=== PATIENT | male | born 1970 | race Two or more races ===

== ENCOUNTER 2023-09-08 10:24 | Emergency (ER) | payer OTHER ==
[~2023-09-08] VITALS: Ht 172.7 cm; Wt 75.3 kg
[2023-09-08 11:48] LABS: Basophils # (auto) 0 10 ^3/uL (0-0.2); Basophils % (auto) 0.3 % (0.0-2.0); Eosinophils # (auto) 0 10 ^3/uL (0-0.8); Hematocrit 44.6 % (41.0-53.0); Hemoglobin 14.5 g/dL (13.5-17.5); Lymphocytes # (auto) 0.9 10 ^3/uL (0.4-5.4); Lymphocytes % (auto) 24.8 % (10.0-50.0); Mean Corpuscular Hgb Conc. 32.6 g/dL (32.0-36.0); Mean Corpuscular Volume 88.9 fL (80.0-100.0); Monocytes # (auto) 0.4 10 ^3/uL (0-1.3); Monocytes % (auto) 12.6 % (0.0-12.0); Neutrophils # (auto) 2.1 10 ^3/uL (1.6-8.6); Neutrophils % (auto) 61.3 % (37.0-80.0); Nucleated Red Blood Cells % 0.7 %; Red Blood Cells 5.01 10^6/uL (4.5-5.90); Red Cell Distribution Width 14.1 % (11.8-14.3); White Blood Cell 3.4 10^3/uL (4.4-10.8)
[2023-09-08 12:08] LABS: Alanine Aminotransferase 21 U/L (7-40); Albumin 4.7 g/dL (3.2-4.8); Alkaline Phosphatase 52 U/L (46-116); Anion Gap 8 (5-15); Aspartate Aminotransferase 37 U/L (13-40); BUN/Creatinine Ratio 7.8 (10.0-20.0); Blood Urea Nitrogen 8 mg/dL (9-23); Calcium 9.3 mg/dL (8.7-10.4); Carbon Dioxide 26 mmol/L (20-30); Chloride 104 mmol/L (98-107); Glucose 123 mg/dL (74-106); Lipase 48 U/L (12-53); Potassium 3.8 mmol/L (3.5-5.1); Sodium 138 mmol/L (136-145)
[2023-09-08 12:09] LABS: Bilirubin, Total 1.6 mg/dL (0.2-1.0); Total Protein 7.8 g/dL (5.7-8.2)
[2023-09-08 13:23] VITALS: TEMP 98.1
[2023-09-08] MEDS: cloNIDine HCL 0.1 MG TAB PO ONE (13:32)
[2023-09-08 14:27] VITALS: BP 150/89; PULSE 60; RESP 17; O2SAT 98
[2023-09-08 14:39] LABS: Urine Bacteria NONE SEEN /hpf (None Seen); Urine Blood Negative /uL (Negative); Urine Clarity Clear (Clear); Urine Color Yellow (Yellow); Urine Protein, UAD Negative (Negative); Urine Specific Gravity 1.015 (1.001-1.035); Urine Urobilinogen Normal (Negative); Urine WBC <1 /hpf (0 - 3); Urine pH 5.5 (5.0-8.0)
== END 2023-09-08 14:27 | disposition home or self-care (01) ==
LOC: ER 10:24
DX: I10 Essential (primary) hypertension (principal); R10.13 Epigastric pain; R11.2 Nausea with vomiting, unspecified; K59.00 Constipation, unspecified; K21.9 Gastro-esophageal reflux disease without esophagitis
CPT/HCPCS: 36415; 80053; 81001; 83690; 85025

== ENCOUNTER 2024-09-07 00:19 | Inpatient (IN) | payer OTHER ==
[~2024-09-07] VITALS: Ht 172.7 cm; Wt 68.8 kg
--- NOTE | 2024-09-07 00:49 | ED.PDOC ---
GI ASSESSMENT HPI Comments 53-year-old male came to ER due to the abdominal pain. Patient states for the past 4 days, been having intermittent episodes of aching, cramping, epigastric abdominal pain, non radiating. Patient feels nauseated, and his last bowel movement was 3 days ago. Denies any history of abdominal surgeries. Patient denies any significant past medical history. He does follow up with the PA for routine medical care. Chief Complaint: Abdominal Pain Time Seen by MD: 00:47 Primary Care Provider: PA Reviewed Notes: Nurses Notes Allergies: Coded Allergies: NO KNOWN ALLERGIES (Unverified , 09/08/23) Information Source: Patient Mode of Arrival: Ambulatory Timing: Days Duration: Intermittent Prehospital treatment: None Quality: Aching, Cramping Vomitus: None Stool: Impaction Severity: Moderate Recent: None Recent Hx of: None Pain Location: Epigastric Associated sign and symptoms: Nausea, Constipation, Abdominal Pain Review of Systems REVIEW OF SYSTEMS: No fever, no chills, or fatigue HEENT: No sore throat, no earache, no congestion, no neck pain. Cardiac: No chest pain. No palpitations. Lungs: No shortness of breath, no cough. GI: No nausea, no vomiting, no diarrhea, (+) constipation, (+) abdominal pain : No dysuria, frequency, or urgency. No hematuria. Musculoskeletal: No joint pain , no joint swelling, no extremity edema. Skin: No rash, no itching. Neuro: No headache, no dizziness, no weakness Vital Signs Vital Signs Date Time Temp Pulse Resp B/P (MAP) Pulse Ox O2 Delivery O2 Flow Rate FiO2 09/07/24 04:40 52 24 178/98 09/07/24 04:26 100 09/07/24 01:27 Room Air* 0 21 09/07/24 01:10 98.2 98.2 Physical Exam General: Awake, alert and oriented. No acute distress. Skin: Skin in warm, dry and intact. Appropriate color for ethnicity. Nailbeds pink with no cyanosis. HEENT: The head is normocephalic and atraumatic. Conjunctivae are clear without exudates or hemorrhage. Sclera is non-icteric. EOM are intact. No signs of nystagmus. Eyelids are normal in appearance without swelling or lesions. Oral mucosa is pink and moist Neck: The neck is supple with normal range of motion. No JVD. Cardiac: Heart rate and rhythm are normal. No murmurs, gallops, or rubs are auscultated. Respiratory: No signs of respiratory distress. Lung sounds are clear in all lobes bilaterally without rales, ronchi, or wheezes. Abdominal: Abdomen is firm and distended. Generally tender with diminished bowel sounds. Extremities: Upper and lower extremities are atraumatic in appearance without deformity or edema. Neurological: The patient is awake, alert and oriented to person, place, and time with normal speech. Speech is clear. There is no facial asymmetry. Psychiatric: Appropriate mood and affect. Good judgement and insight. Past Medical History PAST MEDICAL HISTORY: GERD, HTN Surgical History: Denies all surgeries Family History Family History: Reviewed,noncontributory to illness Social History Smoker: Non-Smoker Alcohol: Occasionally Drugs: Denies Drug Use Lives In: Home Was a procedure done? Was a procedure done?: No GI differential Dx Differential Diagnosis: Bowel Obstruction, Constipation, Diverticular disease, Gastritis/PUD, Gastroenteritis, Hernia, Inflammatory BD, Ischemic Bowel, Pancreatitis, UTI, Urolithiasis, Other (Fecal impaction) X-Ray, Labs, Meds, VS Vital Signs Date Time Temp Pulse Resp B/P (MAP) Pulse Ox O2 Delivery O2 Flow Rate FiO2 09/07/24 04:40 52 24 178/98 09/07/24 04:26 52 20 178/98 (124) 100 09/07/24 01:53 65 18 156/84 09/07/24 01:27 63 20 100 Room Air* 0 21 09/07/24 01:23 63 20 158/97 09/07/24 01:10 98.2 63 20 158/97 (117) 100 98.2 09/07/24 00:25 98.9 61 13 146/89 (108) 98 Lab Test 09/07/24 01:06 09/07/24 00:51 Range/Units White Blood Count 6.4 4.4-10.8 10^3/uL Red Blood Count 4.83 4.5-5.90 10^6/uL Hemoglobin 14.0 13.5-17.5 g/dL Hematocrit 42.0 41.0-53.0 % Mean Corpuscular Volume 87.0 80.0-100.0 fL Mean Corpuscular Hemoglobin 29.1 28.0-32.0 pg Mean Corpuscular Hemoglobin Concent 33.4 32.0-36.0 g/dL Red Cell Distribution Width 14.6 H 11.8-14.3 % Platelet Count 230 140-450 10^3/uL Mean Platelet Volume 8.2 6.9-10.8 fL Neutrophils (%) (Auto) 72.7 37.0-80.0 % Lymphocytes (%) (Auto) 17.1 10.0-50.0 % Monocytes (%) (Auto) 9.3 0.0-12.0 % Eosinophils (%) (Auto) 0.4 0.0-7.0 % Basophils (%) (Auto) 0.5 0.0-2.0 % Neutrophils # (Auto) 4.7 1.6-8.6 10 ^3/uL Lymphocytes # (Auto) 1.1 0.4-5.4 10 ^3/uL Monocytes # (Auto) 0.6 0-1.3 10 ^3/uL Eosinophils # (Auto) 0 0-0.8 10 ^3/uL Basophils # (Auto) 0 0-0.2 10 ^3/uL Nucleated Red Blood Cells 0.0 % Sodium Level 137 136-145 mmol/L Potassium Level 4.1 3.5-5.1 mmol/L Chloride Level 102 98-107 mmol/L Carbon Dioxide Level 27 20-31 mmol/L Anion Gap 8 5-15 Blood Urea Nitrogen 9 9-23 mg/dL Creatinine 1.09 0.700-1.30 mg/dL Glomerular Filtration Rate Calc 80 >90 mL/min BUN/Creatinine Ratio 8.3 L 10.0-20.0 Serum Glucose 120 H 74-106 mg/dL Calcium Level 11.0 H 8.7-10.4 mg/dL Total Bilirubin 0.9 0.2-1.0 mg/dL Aspartate Amino Transferase (AST) 16 13-40 U/L Alanine Aminotransferase (ALT) 16 7-40 U/L Alkaline Phosphatase 49 46-116 U/L Total Protein 7.7 5.7-8.2 g/dL Albumin 4.9 H 3.2-4.8 g/dL Lipase 1884 H 12-53 U/L Urine Color Light-yellow Yellow Urine Clarity Clear Clear Urine pH 8.0 5.0-9.0 Urine Specific [place] 1.018 1.001-1.035 Urine Protein Negative Negative Urine Ketones Negative Negative Urine Blood Negative Negative /uL Urine Nitrite Negative Negative Urine Bilirubin Negative Negative Urine Urobilinogen Normal Negative mg/dL Urine Leukocyte Esterase Negative Negative /uL Urine RBC 1 0 - 3 /hpf Urine Microscopic WBC < 1 0-3 /HPF Urine Squamous Epithelial Cells Few <5 /hpf Urine Bacteria None seen None Seen /hpf Urine Glucose Normal Normal mg/dL Current Medications Medications (Trade) Dose Ordered Sig/[facility] Route Start Time Stop Time Status Last Admin Ondansetron HCl (Zofran) 4 mg ONCE ONCE IV 09/07/24 01:00 09/07/24 01:01 DC 09/07/24 01:24 Morphine Sulfate 4 mg ONCE ONCE IV 09/07/24 01:00 09/07/24 01:01 DC 09/07/24 01:23 Ketorolac Tromethamine (Toradol Injection) 15 mg ONCE ONCE IV 09/07/24 01:00 09/07/24 01:01 DC 09/07/24 01:24 Hydromorphone HCl (Dilaudid Injection) 0.5 mg ONCE ONCE IV 09/07/24 04:30 09/07/24 04:31 DC 09/07/24 04:40 Sodium Chloride 1,000 ml @ 1,000 mls/hr Q1H ONCE IV 09/07/24 04:30 09/07/24 05:29 DC 09/07/24 04:33 Sodium Chloride 1,000 ml @ 1,000 mls/hr Q1H ONCE IV 09/07/24 04:30 09/07/24 05:29 DC 09/07/24 04:33 PROCEDURE(s): ABPLIV - CT AB PEL WITH IV CON ONLY REASON: Abdominal Pain Constipation ORDER NUMBER(s): [id number], ACCESSION NUMBER(s): [id number] Examination: ABPLIV CLINICAL INDICATION: Abdominal Pain Constipation DIREAS;Reason for Exam: Wheelchair;Wheelchair;Modes of Transportation DITRANS;How is patient transported? ;n OECTB;Has the patient had a recent BUN/CREAT? ;N OECTC;Has the patient had IV contrast within last 48 hours? ;N OECTN;Has patient been NPO for at least 4 hours? COMPARISON: None. CONTRAST USED: None. TECHNIQUE: A post-contrast CT study of the abdomen and pelvis was performed after the administration of intravenous contrast medium. The examination was performed using 5 mm thin slices, following ALARA (As Low As Reasonably Achievable) principles. Multiplanar reconstructions were obtained. FINDINGS: CT ABDOMEN: Lung Base: No focal infiltrates or pleural effusion detected. Liver: Multiple hemangiomas noted in the right lobe of the liver, with the lar gest measuring 3 3 cm in segment VII. Flash hemangioma in segment II, measuring 10 mm. The liver is normal in size. The portal venous radicles are normal. No intrahepatic biliary radicle dilatation. Spleen: The spleen is normal in size and does not show any focal abnormality. Gallbladder: The gallbladder is unremarkable, with no intrinsic abnormality. The common bile duct (CBD) is non-dilated. Pancreas: Ill-defined heterogeneously enhancing lesion in the head of the pancreas, measuring 3.9 4.1 4 cm, with multiple calcific areas. Findings suggestive of neoplastic etiology. Further evaluation with PET scan is recommend ed. Fat plane between the lesion and superior mesenteric vessels is well maintained. Lesion abutting the deep 3rd portion of the duodenum. Body and tail of the pancreas are unremarkable. Subcentimeter-sized lymph nodes noted in the peripancreatic region. Retroperitoneum: Both adrenal glands are unremarkable. No significant retroperitoneal lymphadenopathy. The kidneys are normal in size, with no hydronephrosis or renal calculi. Stomach and Bowel: Mild colonic diverticulosis without diverticulitis. Appendix not visualized in the present study. The bowel loops are unremarkable. No ascites. Skeletal System: Mild degenerative changes in the thoracolumbar spine. Vessels: Aorta, IVC, and mesenteric vessels appear unremarkable. CT PELVIS: Appendix: Appendix is not visualized in the present study. Colon: Mild colonic diverticulosis noted without diverticulitis. No significant abnormality in the ascending, transverse, descending, sigmoid colon, and rectum. Bladder: The urinary bladder is unremarkable. Pelvic Organs: Prostate is normal. Pelvic Lymph Nodes and Fluid Collection: No pelvic lymphadenopathy identified. No abnormal fluid collection seen. IMPRESSION: 1. Multiple hepatic hemangiomas in the right lobe of the liver (largest: 3 3 cm in segment VII) and a flash hemangioma in segment II (10 mm). 2. Heterogeneously enhancing lesion with calcifications in the head of the panc reas (3.9 4.1 4 cm), suggestive of neoplastic etiology. Further evaluation with PET scan is recommended. 3. Fat plane between the pancreatic lesion and superior mesenteric vessels is well maintained. 4. Lesion abutting the deep 3rd portion of the duodenum. 5. Subcentimeter-sized peripancreatic lymph nodes. 6. Mild colonic diverticulosis without diverticulitis. 7. Mild degenerative changes in the thoracolumbar spine. 8. Recommendation: PET scan for further characterization of the pancreatic lesion. Clinical correlation for pancreatic findings. Follow-up imaging for hepatic hemangiomas if clinically indicated. Time of 1ST Reevaluation: 00:44 Reevaluation 1ST: Unchanged Patient Education/Counseling: Diagnosis, Other (Discussed with patient abnormal CT scan findings, concerning for cancer, need for admission and further evaluation) Family Education/Counseling: No Family Present Departure 1 Departure Time of Disposition: 05:32 Impression: Primary Impression: Abdominal pain Additional Impressions: Hemangioma Pancreatitis Pancreatic lesion Disposition: ADMITTED INPATIENT Condition: Stable Comments 53-year-old male presented to the ED with several days of abdominal pain, vomiting, inability to tolerate PO. CT scan shows multiple hemangiomas and pancreatic lesion suggestive of possible neoplastic origin. Patient admitted for further treatment, evaluation and monitoring. Critical Care Note Critical Care Time?: No Stability Stability form required: No I personally scribed for LUDIVINA VEGA MD ([email or web address]) on 09/07/24 at 00:49. Electronically submitted by Gualberto Teran ([employer]). I personally scribed for LUDIVINA VEGA MD ([email or web address]) on 09/07/24 at 04:50. Electronically submitted by Gualberto Teran ([employer]). LUDIVINA VEGA MD Sep 07, 2024 00:49
[2024-09-07] MEDS: IOHEXOL 300 MG/ML 100ML BOTTLE IJ ONE (01:07)
[2024-09-07 01:17] LABS: Basophils # (auto) 0 10 ^3/uL (0-0.2); Basophils % (auto) 0.5 % (0.0-2.0); Eosinophils # (auto) 0 10 ^3/uL (0-0.8); Eosinophils % (auto) 0.4 % (0.0-7.0); Lymphocytes # (auto) 1.1 10 ^3/uL (0.4-5.4); Lymphocytes % (auto) 17.1 % (10.0-50.0); Mean Corpuscular Hemoglobin 29.1 pg (28.0-32.0); Mean Corpuscular Hgb Conc. 33.4 g/dL (32.0-36.0); Monocytes # (auto) 0.6 10 ^3/uL (0-1.3); Monocytes % (auto) 9.3 % (0.0-12.0); Neutrophils # (auto) 4.7 10 ^3/uL (1.6-8.6); Neutrophils % (auto) 72.7 % (37.0-80.0); Platelet Count (auto) 230 10^3/uL (140-450); Red Blood Cells 4.83 10^6/uL (4.5-5.90); Red Cell Distribution Width 14.6 % (11.8-14.3); White Blood Cell 6.4 10^3/uL (4.4-10.8)
[2024-09-07] MEDS: MORPHINE SULFATE 4 MG/ML SYR/VIAL IV ONE (01:23)
[2024-09-07] MEDS: ONDANSETRON HCL 4 MG/2 ML VIAL IV ONE (01:24)
[2024-09-07] MEDS: KETOROLAC TROMETH 30 MG/ML 1ML VIAL IV ONE (01:24)
[2024-09-07 01:27] VITALS: PULSE 63; RESP 20; O2SAT 100
[2024-09-07 01:36] LABS: Alanine Aminotransferase 16 U/L (7-40); Alkaline Phosphatase 49 U/L (46-116); Anion Gap 8 (5-15); Aspartate Aminotransferase 16 U/L (13-40); BUN/Creatinine Ratio 8.3 (10.0-20.0); Bilirubin, Total 0.9 mg/dL (0.2-1.0); Carbon Dioxide 27 mmol/L (20-31); Chloride 102 mmol/L (98-107); Potassium 4.1 mmol/L (3.5-5.1); Sodium 137 mmol/L (136-145); Total Protein 7.7 g/dL (5.7-8.2)
[2024-09-07 01:37] LABS: Albumin 4.9 g/dL (3.2-4.8); Blood Urea Nitrogen 9 mg/dL (9-23); Glucose 120 mg/dL (74-106)
[2024-09-07 01:43] LABS: Lipase 1884 U/L (12-53)
[2024-09-07 02:32] LABS: Urine Bacteria None Seen /hpf (None Seen)
--- NOTE | 2024-09-07 03:20 | DVH ---
Examination: ABPLIV CLINICAL INDICATION: Abdominal Pain Constipation DIREAS;Reason for Exam: Wheelchair;Wheelchair;Modes of Transportation DITRANS;How is patient transported? ;n OECTB;Has the patient had a recent BUN/CREAT ? ;N OECTC;Has the patient had IV contrast within last 48 hours? ;N OECTN;Has patient been NPO for at least 4 hours? COMPARISON: None. CONTRAST USED: None. TECHNIQUE: A post-contrast CT study of the abdomen and pelvis was performed after the administration of intravenous contrast medium. The examination was performed using 5 mm thin slices, following ALARA (As Low As Reasonably Achievable) principles. Multiplanar reconstructions were obtained. FINDINGS: CT ABDOMEN: Lung Base: No focal infiltrates or pleural effusion detected. Liver: Multiple hemangiomas noted in the right lobe of the liver, with the largest measuring 3 3 cm in segment VII. Flash hemangioma in segment II, measuring 10 mm. The liver is normal in size. The portal venous radicles are normal. No intrahepatic biliary radicle dilatation. Spleen: The spleen is normal in size and does not show any focal abnormality. Gallbladder: The gallbladder is unremarkable, with no intrinsic abnormality. The common bile duct (CB D) is non-dilated. Pancreas: Ill-defined heterogeneously enhancing lesion in the head of the pancreas, measuring 3.9 4.1 4 cm, with multiple calcific areas. Findings suggestive of neoplastic etiology. Further eval uation with PET scan is recommended. Fat plane between the lesion and superior mesenteric vessels is well maintained. Lesion abutting the deep 3rd portion of the duodenum. Body and tail of the pancreas are unremarkable. Subcentimeter-sized lymph nodes noted in the peripancreatic region. Retroperitoneum: Both adrenal glands are unremarkable. No significant retroperitoneal lymphadenopathy . The kidneys are normal in size, with no hydronephrosis or renal calculi. Stomach and Bowel: Mild colonic diverticulosis without diverticulitis. Appendix not visualized in the present study. The bowel loops are unremarkable. No ascites. Skeletal System: Mild degenerative changes in the thoracolumbar spine. Vessels: Aorta, IVC, and mesenteric vessels appear unremarkable. CT PELVIS: Appendix: Appendix is not visualized in the present study. Colon: Mild colonic diverticulosis noted without diverticulitis. No significant abnormality in the as cending, transverse, descending, sigmoid colon, and rectum. Bladder: The urinary bladder is unremarkable. Pelvic Organs: Prostate is normal. Pelvic Lymph Nodes and Fluid Collection: No pelvic lymphadenopathy identified. No abnormal fluid aneta ection seen. IMPRESSION: 1. Multiple hepatic hemangiomas in the right lobe of the liver (largest: 3 3 cm in segment VII) and a flash hemangioma in segment II (10 mm). 2. Heterogeneously enhancing lesion with calcifications in the head of the pancreas (3.9 4.1 4 cm), suggestive of neoplastic etiology. Further evaluation with PET scan is recommended. 3. Fat plane between the pancreatic lesion and superior mesenteric vessels is well maintained. 4. Lesion abutting the deep 3rd portion of the duodenum. 5. Subcentimeter-sized peripancreatic lymph nodes. 6. Mild colonic diverticulosis without diverticulitis. 7. Mild degenerative changes in the thoracolumbar spine. 8. Recommendation: PET scan for further characterization of the pancreatic lesion. Clinical correlat ion for pancreatic findings. Follow-up imaging for hepatic hemangiomas if clinically indicated. Electronically Signed 09/07/2024 03:20 Juan M Victoria
[2024-09-07 03:53] LABS: Urine Blood Negative /uL (Negative); Urine Clarity Clear (Clear); Urine Color Light-Yellow (Yellow); Urine Protein, UAD Negative (Negative); Urine Specific Gravity 1.018 (1.001-1.035); Urine Squamous Epithelial Cell FEW /hpf (<5); Urine Urobilinogen Normal (Negative); Urine WBC < 1 /HPF (0-3)
[2024-09-07] MEDS: SODIUM CHLORIDE 0.9% 1,000 ML IV ONE ×2 (04:33)
[2024-09-07] MEDS: HYDROmorphone HCL 2 MG/ML VL/or syr IV ONE ×2 (04:40→06:02)
[2024-09-07] MEDS ORDERED: hydrALAZINE HCL 20 MG/ML VL IV PRN (08:45)
--- NOTE | 2024-09-07 08:50 | DVHHP2 ---
History of Present Illness Reason for Visit: Abdominal pain History of Present Illness This 53-year-old male with past medical history of hypertension, GERD, anxiety, PTSD, and alcohol abuse presents in the ED with a chief complaint of abdominal pain. The patient reports epigastric abdominal pain associated with cramping, nauseated, and constipation started four days ago. The patient reports have been drinking liquor 3 times a week for the past 30 years. Denies tobacco or illicit drug use. Past Medical History As stated in HPI Past Surgical History Denies Family History Reviewed, non-contributory to the management of this case. Past Social History Admits to alcohol use Denies tobacco or illicit drug use Review of Systems Constitutional: Yes: Malaise; No: Fever, Chills, Sweats, Weakness, Other Eyes: No: Pain, Vision change, Conjunctivae inflammation, Eyelid inflammation, Other, Redness ENT: No: Ear pain, Ear discharge, Nose pain, Nose discharge, Nose congestion, Mouth pain, Mouth swelling, Throat pain, Throat swelling, Other Respiratory: No: Cough, Dry, Shortness of breath, SOB with excertion, Wheezing, Hemoptysis, Pleuritic Pain, Sputum, Wheezing, Other Cardiovascular: No: Chest Pain, Palpitations, Orthopnea, Paroxysmal Noc. Dyspnea, Edema, Lt Headedness, Other Gastrointestinal: Nausea, Abdominal Pain; No: Vomiting, Diarrhea, Constipation, Melena, Hematochezia, Other Genitourinary: No Dysuria, No Frequency, No Incontinence, No Hematuria, No Retention, No Other Musculoskeletal: No: other, neck pain, shoulder pain, arm pain, back pain, hand pain, leg pain, foot pain Skin: No: Rash, Lesions, Jaundice, Bruising, Other Neurological: No: Weakness, Numbness, Incoordination, Change in speech, Confusion, Seizures, Other Allergies: Coded Allergies: NO KNOWN ALLERGIES (Unverified , 09/08/23) Exam Vital Signs Vital Signs Date Time Temp Pulse Resp B/P (MAP) Pulse Ox O2 Delivery O2 Flow Rate FiO2 09/07/24 08:33 60 09/07/24 06:02 13 175/91 09/07/24 06:00 100 09/07/24 05:15 Room Air* 0 21 09/07/24 01:10 98.2 98.2 General Appearance: Alert, Oriented X3, Cooperative, moderate distress HEENT: Atraumatic, PERRLA, EOMI, Mucous membr. moist/pink Respiratory: Clear to auscultation, Normal air movement Cardiovascular: Regular rate, Normal S1, Normal S2 Abdominal: Normal bowel sounds, Soft, No tenderness Extremities: No clubbing, No cyanosis, No edema, Normal pulses, No tenderness/swelling Skin: No rashes, No breakdown, No significant lesion Neuro: Normal gait, Normal speech, Strength at 5/5 X4 ext, Normal tone Psych/Mental Status: Mental status NL Labs/Xrays Labs Test 09/07/24 01:06 09/07/24 00:51 Range/Units White Blood Count 6.4 4.4-10.8 10^3/uL Red Blood Count 4.83 4.5-5.90 10^6/uL Hemoglobin 14.0 13.5-17.5 g/dL Hematocrit 42.0 41.0-53.0 % Mean Corpuscular Volume 87.0 80.0-100.0 fL Mean Corpuscular Hemoglobin 29.1 28.0-32.0 pg Mean Corpuscular Hemoglobin Concent 33.4 32.0-36.0 g/dL Red Cell Distribution Width 14.6 H 11.8-14.3 % Platelet Count 230 140-450 10^3/uL Mean Platelet Volume 8.2 6.9-10.8 fL Neutrophils (%) (Auto) 72.7 37.0-80.0 % Lymphocytes (%) (Auto) 17.1 10.0-50.0 % Monocytes (%) (Auto) 9.3 0.0-12.0 % Eosinophils (%) (Auto) 0.4 0.0-7.0 % Basophils (%) (Auto) 0.5 0.0-2.0 % Neutrophils # (Auto) 4.7 1.6-8.6 10 ^3/uL Lymphocytes # (Auto) 1.1 0.4-5.4 10 ^3/uL Monocytes # (Auto) 0.6 0-1.3 10 ^3/uL Eosinophils # (Auto) 0 0-0.8 10 ^3/uL Basophils # (Auto) 0 0-0.2 10 ^3/uL Nucleated Red Blood Cells 0.0 % Sodium Level 137 136-145 mmol/L Potassium Level 4.1 3.5-5.1 mmol/L Chloride Level 102 98-107 mmol/L Carbon Dioxide Level 27 20-31 mmol/L Anion Gap 8 5-15 Blood Urea Nitrogen 9 9-23 mg/dL Creatinine 1.09 0.700-1.30 mg/dL Glomerular Filtration Rate Calc 80 >90 mL/min BUN/Creatinine Ratio 8.3 L 10.0-20.0 Serum Glucose 120 H 74-106 mg/dL Calcium Level 11.0 H 8.7-10.4 mg/dL Total Bilirubin 0.9 0.2-1.0 mg/dL Aspartate Amino Transferase (AST) 16 13-40 U/L Alanine Aminotransferase (ALT) 16 7-40 U/L Alkaline Phosphatase 49 46-116 U/L Total Protein 7.7 5.7-8.2 g/dL Albumin 4.9 H 3.2-4.8 g/dL Lipase 1884 H 12-53 U/L Urine Color Light-yellow Yellow Urine Clarity Clear Clear Urine pH 8.0 5.0-9.0 Urine Specific [place] 1.018 1.001-1.035 Urine Protein Negative Negative Urine Ketones Negative Negative Urine Blood Negative Negative /uL Urine Nitrite Negative Negative Urine Bilirubin Negative Negative Urine Urobilinogen Normal Negative mg/dL Urine Leukocyte Esterase Negative Negative /uL Urine RBC 1 0 - 3 /hpf Urine Microscopic WBC < 1 0-3 /HPF Urine Squamous Epithelial Cells Few <5 /hpf Urine Bacteria None seen None Seen /hpf Urine Glucose Normal Normal mg/dL PROCEDURE(s): ABPLIV - CT AB PEL WITH IV CON ONLY REASON: Abdominal Pain Constipation ORDER NUMBER(s): [id number], ACCESSION NUMBER(s): [id number] Examination: ABPLIV CLINICAL INDICATION: Abdominal Pain Constipation DIREAS;Reason for Exam: Wheelchair;Wheelchair;Modes of Transportation DITRANS;How is patient transported? ;n OECTB;Has the patient had a recent BUN/CREAT? ;N OECTC;Has the patient had IV contrast within last 48 hours? ;N OECTN;Has patient been NPO for at least 4 hours? COMPARISON: None. CONTRAST USED: None. TECHNIQUE: A post-contrast CT study of the abdomen and pelvis was performed a fter the administration of intravenous contrast medium. The examination was performed using 5 mm thin slices, following ALARA (As Low As Reasonably Achievable) principles. Multiplanar reconstructions were obtained. FINDINGS: CT ABDOMEN: Lung Base: No focal infiltrates or pleural effusion detected. Liver: Multiple hemangiomas noted in the right lobe of the liver, with the largest measuring 3 3 cm in segment VII. Flash hemangioma in segment II, measuring 10 mm. The liver is normal in size. The portal venous radicles are normal. No intrahepatic biliary radicle dilatation. Spleen: The spleen is normal in size and does not show any focal abnormality. Gallbladder: The gallbladder is unremarkable, with no intrinsic abnormality. The common bile duct (CBD) is non-dilated. Pancreas: Ill-defined heterogeneously enhancing lesion in the head of the pancreas, measuring 3.9 4.1 4 cm, with multiple calcific areas. Findings suggestive of neoplastic etiology. Further evaluation with PET scan is recommended. Fat plane between the lesion and superior mesenteric vessels is well maintained. Lesion abutting the deep 3rd portion of the duodenum. Body and tail of the pancreas are unremarkable. Subcentimeter-sized lymph nodes noted in the peripancreatic region. Retroperitoneum: Both adrenal glands are unremarkable. No significant retroperitoneal lymphadenopathy. The kidneys are normal in size, with no hydronephrosis or renal calculi. Stomach and Bowel: Mild colonic diverticulosis without diverticulitis. Appendix not visualized in the present study. The bowel loops are unremarkable. No ascites. Skeletal System: Mild degenerative changes in the thoracolumbar spine. Vessels: Aorta, IVC, and mesenteric vessels appear unremarkable. CT PELVIS: Appendix: Appendix is not visualized in the present study. Colon: Mild colonic diverticulosis noted without diverticulitis. No significant abnormality in the ascending, transverse, descending, sigmoid colon, and rectum. Bladder: The urinary bladder is unremarkable. Pelvic Organs: Prostate is normal. Pelvic Lymph Nodes and Fluid Collection: No pelvic lymphadenopathy identified. No abnormal fluid collection seen. IMPRESSION: 1. Multiple hepatic hemangiomas in the right lobe of the liver (largest: 3 3 cm in segment VII) and a flash hemangioma in segment II (10 mm). 2. Heterogeneously enhancing lesion with calcifications in the head of the pancreas (3.9 4.1 4 cm), suggestive of neoplastic etiology. Further evaluation with PET scan is recommended. 3. Fat plane between the pancreatic lesion and superior mesenteric vessels is well maintained. 4. Lesion abutting the deep 3rd portion of the duodenum. 5. Subcentimeter-sized peripancreatic lymph nodes. 6. Mild colonic diverticulosis without diverticulitis. 7. Mild degenerative changes in the thoracolumbar spine. Assessment/Plan Assessment/Plan # Acute pancreatitis # Abdominal pain # Pancreatic lesion # Hemangioma Admit to Med unit NPO except for med IV fluid GI consult US gallbladder PPI Pain control # accelerated hypertension Amlodipine Hydralazine as needed Monitor # hyperglycemia Check A1c Lipid panel # ETOH abuse Check alcohol level Counseled on alcohol cessation # anxiety, PTSD Gabapentin Medical plan discussed with patient and RN Plan discussed with: Patient My Orders Orders - NADEEM COLLINS Procedure Category Date Status Time Admit ADMIT 09/07/24 Transmitted 08:44 Code Status CODE 09/07/24 Transmitted 08:44 Ondansetron Hcl PHA 09/07/24 Transmitted (Zofran) 08:45 Condition: Fair JORGE 09/07/24 In Process 08:44 Morphine Sulfate PHA 09/07/24 Transmitted Injection 08:45 Hydralazine Injection PHA 09/07/24 Transmitted (Apresoline Inject 08:45 Drug Screen LAB 09/07/24 Transmitted 08:44 Urine Ethanol LAB 09/07/24 Transmitted 08:44 Pantoprazole PHA 09/07/24 Transmitted (Protonix) 10:00 Amlodipine Tablet PHA 09/07/24 Transmitted (Norvasc Tablet) 10:00 1/2 Ns PHA 09/07/24 Transmitted 08:45 * Gi Dvh Sample Color Maker CONS 09/07/24 Verified 08:49 Date of Service: Sep 07, 2024 Billing Provider: NADEEM COLLINS Common Visit Codes: [id number] INP/OBS CARE (HIGH) NADEEM COLLINS Sep 07, 2024 08:50
[2024-09-07 09:10] LABS: Opiate Scree,Urine Neg (NEGATIVE)
[2024-09-07 09:17] LABS: Amphetamine Screen, Urine Neg (NEGATIVE); Barbiturate Scree,Urine Neg (NEGATIVE); Benzodiazephine Screen, Urine Neg (NEGATIVE); Cannabinoid Screen, Urine Neg (NEGATIVE); Cocaine Screen, Urine Neg (NEGATIVE); Phencyclidine Screen, Urine Neg (NEGATIVE)
[2024-09-07] MEDS: SOD CHL 0.45% 1,000 ML IV SCH (09:40)
[2024-09-07] MEDS: ONDANSETRON HCL 4 MG/2 ML VIAL IV PRN (09:40)
[2024-09-07] MEDS: MORPHINE SULFATE INJ 2 MG/ml SYRG IV PRN (09:42)
[2024-09-07 09:55] VITALS: PULSE 99; RESP 15; O2SAT 96
[2024-09-07] MEDS: PANTOPRAZOLE 40 MG/10 ML VIAL INJ IV SCH (10:06)
[2024-09-07] MEDS: amLODIPine BESYLATE 5 MG TAB PO SCH (10:07)
[2024-09-07 10:28] LABS: Triglycerides 83 mg/dL (< 150)
[2024-09-07 10:29] LABS: LDL Cholesterol 158 mg/dL (< 100)
[2024-09-07 10:30] LABS: Cholesterol 237 mg/dL (< 200); HDL Cholesterol 66 mg/dL (40-59)
--- NOTE | 2024-09-07 13:20 | DVH ---
INDICATION: elevated lipase TECHNIQUE: Multiple real-time sonographic images were obtained of the right upper quadrant. COMPARISON: CT abdomen/ pelvis 09/07/2024 FINDINGS: The liver demonstrates mildly increased echotexture. There is a homogeneous hyperechoic str ucture in the liver that measures up to 1.4 cm. The liver measures 14 cm in length. There is no intr ahepatic or extrahepatic ductal dilatation. The common duct measures 4 mm. Normal hepatopetal flow in the portal vein. The gallbladder is without evidence of stone or sludge. The gallbladder wall measures 2 mm and is w ithin normal limits. Negative sonographic Diez's sign. The right kidney measures 9.6 cm in length. The right kidney is normal in contour, size, and shape. The echogenicity is normal. There is no hydronephrosis. The visualized head of the pancreas appears prominent and echogenic. IMPRESSION: 1. No evidence of cholelithiasis or biliary ductal dilatation. 2. Possible mild hepatic steatosis. Focal liver lesion is consistent with a hemangioma when compared with CT. 3. As seen on CT there is an indeterminate lesion at the pancreatic head. 4. Right kidney is unremarkable.
[2024-09-07] MEDS: GABAPENTIN 100 MG CAP PO SCH (14:27)
[2024-09-07] MEDS: HYDROmorphone HCL 2 MG/ML VL/or syr IV PRN (15:24)
[2024-09-07 19:04] VITALS: BP 131/70; PULSE 54; TEMP 98.6; O2SAT 95
--- NOTE | 2024-09-07 19:46 | DVHINCON2 ---
Date of service: Sep 07, 2024 Referring Physician Yecenia Du Reason for Consultation Acute pancreatitis History of Present Illness This 53-year-old male with past medical history of hypertension, GERD, anxiety, PTSD, and alcohol abuse presents in the ED with a chief complaint of abdominal pain. The patient reports epigastric abdominal pain associated with cramping, nauseated, and constipation started four days ago. The patient reports have been drinking liquor 3 times a week for the past 30 years. Denies tobacco or illicit drug use. Patient had a previous episode of pancreatitis about 10 years ago. He is currently resting comfortably in fast track in his abdominal pain is improving Past Medical History hypertension, GERD, anxiety, PTSD, and alcohol abuse Past Surgical History Negative Allergies: Coded Allergies: NO KNOWN ALLERGIES (Unverified , 09/08/23) Current Medications Current Medications Medications (Trade) Dose Ordered Sig/Lazaro Route PRN Reason Start Time Stop Time Status Last Admin Ondansetron HCl (Zofran) 4 mg Q4HP PRN IV NAUSEA / VOMITING 09/07/24 08:45 09/07/24 09:40 Morphine Sulfate 2 mg Q4HPRN PRN IV SEVERE PAIN (7-10 PAIN SCALE) 09/07/24 08:45 Hold 09/07/24 09:42 Hydralazine HCl (Apresoline Injection) 10 mg Q6HP PRN IV SBP>150 09/07/24 08:45 Pantoprazole Sodium (Protonix) 40 mg DAILY IV 09/07/24 10:00 09/07/24 10:06 Amlodipine Besylate (Norvasc Tablet) 5 mg DAILY PO 09/07/24 10:00 09/07/24 10:07 Sodium Chloride 1,000 ml @ 100 mls/hr Q10H IV 09/07/24 08:45 09/07/24 09:40 Gabapentin (Neurontin Capsule) 100 mg TID PO 09/07/24 14:00 09/07/24 14:27 Hydromorphone HCl (Dilaudid Injection) 0.5 mg Q4HPRN PRN IV SEVERE PAIN (7-10 PAIN SCALE) 09/07/24 13:00 09/07/24 15:24 Vital Signs Vital Signs Date Time Temp Pulse Resp B/P (MAP) Pulse Ox O2 Delivery O2 Flow Rate FiO2 09/07/24 19:04 98.6 54 131/70 (90) 95 98.6 09/07/24 16:00 18 09/07/24 09:55 Room Air* 0 21 Physical Exam General Appearance: Alert, Oriented X3, Cooperative, no distress HEENT: Atraumatic, PERRLA, EOMI, Mucous membr. moist/pink Respiratory: Clear to auscultation, Normal air movement Cardiovascular: Regular rate, Normal S1, Normal S2 Abdominal: Normal bowel sounds, Soft, No tenderness Extremities: No clubbing, No cyanosis, No edema, Normal pulses, No t enderness/swelling Skin: No rashes, No breakdown, No significant lesion Neuro: Normal gait, Normal speech, Strength at 5/5 X4 ext, Normal tone Psych/Mental Status: Mental status NL Labs/Diagnostic Data Labs Test 09/07/24 01:06 09/07/24 00:51 Range/Units White Blood Count 6.4 4.4-10.8 10^3/uL Red Blood Count 4.83 4.5-5.90 10^6/uL Hemoglobin 14.0 13.5-17.5 g/dL Hematocrit 42.0 41.0-53.0 % Mean Corpuscular Volume 87.0 80.0-100.0 fL Mean Corpuscular Hemoglobin 29.1 28.0-32.0 pg Mean Corpuscular Hemoglobin Concent 33.4 32.0-36.0 g/dL Red Cell Distribution Width 14.6 H 11.8-14.3 % Platelet Count 230 140-450 10^3/uL Mean Platelet Volume 8.2 6.9-10.8 fL Neutrophils (%) (Auto) 72.7 37.0-80.0 % Lymphocytes (%) (Auto) 17.1 10.0-50.0 % Monocytes (%) (Auto) 9.3 0.0-12.0 % Eosinophils (%) (Auto) 0.4 0.0-7.0 % Basophils (%) (Auto) 0.5 0.0-2.0 % Neutrophils # (Auto) 4.7 1.6-8.6 10 ^3/uL Lymphocytes # (Auto) 1.1 0.4-5.4 10 ^3/uL Monocytes # (Auto) 0.6 0-1.3 10 ^3/uL Eosinophils # (Auto) 0 0-0.8 10 ^3/uL Basophils # (Auto) 0 0-0.2 10 ^3/uL Nucleated Red Blood Cells 0.0 % Sodium Level 137 136-145 mmol/L Potassium Level 4.1 3.5-5.1 mmol/L Chloride Level 102 98-107 mmol/L Carbon Dioxide Level 27 20-31 mmol/L Anion Gap 8 5-15 Blood Urea Nitrogen 9 9-23 mg/dL Creatinine 1.09 0.700-1.30 mg/dL Glomerular Filtration Rate Calc 80 >90 mL/min BUN/Creatinine Ratio 8.3 L 10.0-20.0 Serum Glucose 120 H 74-106 mg/dL Hemoglobin A1c 5.8 H <5.7 % A1C Calcium Level 11.0 H 8.7-10.4 mg/dL Total Bilirubin 0.9 0.2-1.0 mg/dL Aspartate Amino Transferase (AST) 16 13-40 U/L Alanine Aminotransferase (ALT) 16 7-40 U/L Alkaline Phosphatase 49 46-116 U/L Total Protein 7.7 5.7-8.2 g/dL Albumin 4.9 H 3.2-4.8 g/dL Triglycerides Level 83 < 150 mg/dL Cholesterol Level 237 H < 200 mg/dL LDL Cholesterol 158 H < 100 mg/dL HDL Cholesterol 66 H 40-59 mg/dL Lipase 1884 H 12-53 U/L Thyroid Stimulating Hormone (TSH) 1.51 0.55-4.78 uIU/mL Plasma/Serum Blood Alcohol < 3.0 <10 mg/dL Urine Color Light-yellow Yellow Urine Clarity Clear Clear Urine pH 8.0 5.0-9.0 Urine Specific [place] 1.018 1.001-1.035 Urine Protein Negative Negative Urine Ketones Negative Negative Urine Blood Negative Negative /uL Urine Nitrite Negative Negative Urine Bilirubin Negative Negative Urine Urobilinogen Normal Negative mg/dL Urine Leukocyte Esterase Negative Negative /uL Urine RBC 1 0 - 3 /hpf Urine Microscopic WBC < 1 0-3 /HPF Urine Squamous Epithelial Cells Few <5 /hpf Urine Bacteria None seen None Seen /hpf Urine Glucose Normal Normal mg/dL Urine Opiates Screen Neg NEGATIVE Urine Fentanyl Screen Neg NEGATIVE Urine Barbiturates Screen Neg NEGATIVE Urine Phencyclidine Screen Neg NEGATIVE Urine Amphetamines Screen Neg NEGATIVE Urine Benzodiazepines Screen Neg NEGATIVE Urine Cocaine Screen Neg NEGATIVE Urine Cannabinoids Screen Neg NEGATIVE Liver USG IMPRESSION: 1. No evidence of cholelithiasis or biliary ductal dilatation. 2. Possible mild hepatic steatosis. Focal liver lesion is consistent with a hemangioma when compared with CT. 3. As seen on CT there is an indeterminate lesion at the pancreatic head. 4. Right kidney is unremarkable. ABD PELVIC CT IMPRESSION: 1. Multiple hepatic hemangiomas in the right lobe of the liver (largest: 3 3 cm in segment VII) and a flash hemangioma in segment II (10 mm). 2. Heterogeneously enhancing lesion with calcifications in the head of the pancreas (3.9 4.1 4 cm), suggestive of neoplastic etiology. Further evaluation with PET scan is recommended. 3. Fat plane between the pancreatic lesion and superior mesenteric vessels is well maintained. 4. Lesion abutting the deep 3rd portion of the duodenum. 5. Subcentimeter-sized peripancreatic lymph nodes. 6. Mild colonic diverticulosis without diverticulitis. 7. Mild degenerative changes in the thoracolumbar spine. 8. Recommendation: PET scan for further characterization of the pancreatic lesion. Clinical correlation for pancreatic findings. Follow-up imaging for hepatic hemangiomas if clinically indicated. Problems(with codes): (1) Pancreatitis (2) Pancreatic lesion (3) Abdominal pain (4) Hemangioma (5) HTN (hypertension) Plan/Recommendation Plan Start him on ice chips and proceed to clear liquid diet IV fluid hydration Check CA 19-9 and repeat amylase lipase in a.m. Possible MRI of pancreas with pancreatic protocol to be considered PET scan we will have to be arranged as an outpatient Patient counseled about discontinuing alcohol Plan discussed with: Patient, Other (ER Nurse) DAVID JETER MD Sep 07, 2024 19:46
[2024-09-07 21:00] VITALS: BP 126/74; PULSE 60; RESP 20; TEMP 97.9; O2SAT 96
[2024-09-08 01:00] VITALS: BP 152/85; PULSE 56; RESP 20; TEMP 98.1; O2SAT 95
[2024-09-08 05:53] VITALS: BP 103/64; PULSE 60; RESP 20; TEMP 97.2; O2SAT 97
[2024-09-08 06:56] LABS: Basophils # (auto) 0 10 ^3/uL (0-0.2); Basophils % (auto) 0.2 % (0.0-2.0); Eosinophils # (auto) 0.1 10 ^3/uL (0-0.8); Eosinophils % (auto) 1.3 % (0.0-7.0); Hematocrit 39.8 % (41.0-53.0); Hemoglobin 13.5 g/dL (13.5-17.5); Lymphocytes # (auto) 1.1 10 ^3/uL (0.4-5.4); Lymphocytes % (auto) 23.4 % (10.0-50.0); Mean Corpuscular Hemoglobin 29.4 pg (28.0-32.0); Mean Corpuscular Volume 86.6 fL (80.0-100.0); Monocytes # (auto) 0.9 10 ^3/uL (0-1.3); Monocytes % (auto) 18.2 % (0.0-12.0); Neutrophils # (auto) 2.8 10 ^3/uL (1.6-8.6); Neutrophils % (auto) 56.9 % (37.0-80.0); Nucleated Red Blood Cells % 0.1 %; Platelet Count (auto) 218 10^3/uL (140-450); Red Blood Cells 4.59 10^6/uL (4.5-5.90); Red Cell Distribution Width 14.2 % (11.8-14.3); White Blood Cell 4.8 10^3/uL (4.4-10.8)
[2024-09-08 07:15] LABS: Alanine Aminotransferase 13 U/L (7-40); Albumin 4.6 g/dL (3.2-4.8); Anion Gap 9 (5-15); Aspartate Aminotransferase 14 U/L (13-40); BUN/Creatinine Ratio 7.1 (10.0-20.0); Calcium 10.2 mg/dL (8.7-10.4); Carbon Dioxide 27 mmol/L (20-31); Chloride 101 mmol/L (98-107); Glucose 80 mg/dL (74-106); Sodium 137 mmol/L (136-145); Total Protein 7.3 g/dL (5.7-8.2)
[2024-09-08 07:17] LABS: Alkaline Phosphatase 45 U/L (46-116); Amylase 448 U/L (30-118); Bilirubin, Total 1.5 mg/dL (0.2-1.0); Blood Urea Nitrogen 7 mg/dL (9-23); Lipase 281 U/L (12-53); Potassium 3.5 mmol/L (3.5-5.1)
[2024-09-08] MEDS: GADOTERATE MEG 10 MMOL/20ml INJ (0.5MMOL/ml) IV ONE (11:54)
--- NOTE | 2024-09-08 13:11 | DVH ---
CLINICAL HISTORY: abnormal finding pancreas TECHNIQUE: Utilizing a [MR Shi] scanner, MRI and MRCP of the abdomen was performed with and without gadolinium. 10 ml of multiHance was administered intravenously. 3D reconstructed images were obtai sherron. 3D reconstructed images were created under concurrent radiologist supervision and archived on e PACS system. WID: COMPARISON: None FINDINGS: Lower Thorax: Unremarkable. Liver and Biliary system: Liver is normal in size. There central centripetally enhancing lesions in the right and left lobe with the largest in segment 7 or 8 measuring 2.4 cm. These most likely are he mangiomata. No gallstones. Spleen: Unremarkable. Adrenal Glands and Kidneys: Unremarkable. Pancreas and Retroperitoneum: Focal enlargement of the head of the pancreas. This measures 4.7 cm in AP dimension. In the dorsal surface of the pancreatic head there is a 11 mm cystic mass which does no t enhance contrast images. There is no dilatation of the pancreatic duct. No dilatation of the common bile duct.No dilated intrahepatic bile ducts. No enlarged retroperitonea l or yariel hepatis lymph nodes. Aorta and Major Vessels: Unremarkable. Bowel, Mesentery and Peritoneal space: Unremarkable. Abdominal wall and Osseous Structures: Unremarkable. IMPRESSION: 1. Enlarged head of the pancreas with small cystic area posteriorly. Recommend percutaneous CT-guide d biopsy or endoscopic biopsy to rule out neoplasm. 2. No biliary dilatation. No adenopathy. 3. Scattered hemangiomata in the liver.
--- NOTE | 2024-09-08 15:04 | DVHPN2 ---
Subjective Patient continues to report having epigastric pain. Patient also states that it does radiate to his back. Reviewed: Care Plan, H&P, Labs, Medications Changes from previous H/P or p: No Changes General: Per HPI Eyes: No Pain, No Vision change, No Conjunctivae inflammation, No Eyelid inflammation, No Other, No Redness ENT: No Ear pain, No Ear discharge, No Nose pain, No Nose discharge, No Nose congestion, No Mouth pain, No Mouth swelling, No Throat pain, No Throat swelling, No Other Cardiovascular: No Chest Pain, No Palpitations, No Orthopnea, No Paroxysmal Noc. Dyspnea, No Edema, No Lt Headedness, No Other Respiratory: No Cough, No Dry, No Shortness of breath, No SOB with excertion, No Wheezing, No Hemoptysis, No Pleuritic Pain, No Sputum, No Other Gastrointestinal: Nausea; No Vomiting; Abdominal Pain; No Diarrhea, No Constipation, No Melena, No Hematochezia, No Other Genitourinary: No Dysuria, No Frequency, No Incontinence, No Hematuria, No Retention, No Other Musculoskeletal: No other, No neck pain, No shoulder pain, No arm pain, No back pain, No hand pain, No leg pain, No foot pain Skin: No Rash, No Lesions, No Jaundice, No Bruising, No Other Objective Vitals Vital Signs Date Time Temp Pulse Resp B/P (MAP) Pulse Ox O2 Delivery O2 Flow Rate FiO2 09/08/24 10:05 62 18 137/62 09/08/24 05:53 97.2 97 97.2 09/07/24 09:55 Room Air* 0 21 Intake/Output Intake and Output 09/08/24 07:00 Intake Total 300 ml Output Total 500 ml Balance -200 ml Intake IV Total 300 ml Output Urine Total 500 ml General Appearance: Alert, Oriented X3, Cooperative, No acute distress HEENT: Atraumatic, PERRLA Lungs: Clear to auscultation, Normal air movement Cardiovascular: Normal S1, Normal S2 Abdomen: Normal bowel sounds Extremities: No clubbing, No cyanosis Psych/Mental Status: Mental status NL, Mood NL Medications Current Medications Medications Dose Ordered Sig/Lazaro Route Start Time Stop Time Status Last Admin Dose Admin Ondansetron HCl 4 mg Q4HP PRN IV 09/07/24 08:45 09/07/24 09:40 4 MG Morphine Sulfate 2 mg Q4HPRN PRN IV 09/07/24 08:45 Hold 09/07/24 09:42 2 MG Hydralazine HCl 10 mg Q6HP PRN IV 09/07/24 08:45 Pantoprazole Sodium 40 mg DAILY IV 09/07/24 10:00 09/08/24 09:31 40 MG Amlodipine Besylate 5 mg DAILY PO 09/07/24 10:00 09/08/24 09:32 5 MG Sodium Chloride 1,000 ml @ 100 mls/hr Q10H IV 09/07/24 08:45 09/08/24 05:14 100 MLS/HR Gabapentin 100 mg TID PO 09/07/24 14:00 09/08/24 06:17 100 MG Hydromorphone HCl 0.5 mg Q4HPRN PRN IV 09/07/24 13:00 09/08/24 09:35 0.5 MG Laboratory Results Laboratory Tests 09/08/24 06:02 Chemistry Test 09/08/24 06:02 Albumin 4.6 g/dL (3.2-4.8) Calcium Level 10.2 mg/dL (8.7-10.4) Total Protein 7.3 g/dL (5.7-8.2) Lipid panel Test 09/08/24 06:02 Lipase 281 U/L (12-53) H LFT Test 09/08/24 06:02 Alanine Aminotransferase (ALT) 13 U/L (7-40) Alkaline Phosphatase 45 U/L (46-116) L Aspartate Amino Transferase (AST) 14 U/L (13-40) Total Bilirubin 1.5 mg/dL (0.2-1.0) H Urinalysis Test 09/07/24 00:51 Urine Color Light-yellow (Yellow) Urine Clarity Clear (Clear) Urine pH 8.0 (5.0-9.0) Urine Specific [place] 1.018 (1.001-1.035) Urine Protein Negative (Negative) Urine Ketones Negative (Negative) Urine Blood Negative /uL (Negative) Urine Nitrite Negative (Negative) Urine Bilirubin Negative (Negative) Urine Urobilinogen Normal mg/dL (Negative) Urine Leukocyte Esterase Negative /uL (Negative) Urine RBC 1 /hpf (0 - 3) Urine Microscopic WBC < 1 /HPF (0-3) Urine Squamous Epithelial Cells Few /hpf (<5) Urine Bacteria None seen /hpf (None Seen) Urine Glucose Normal mg/dL (Normal) Labs and/or images reviewed: Labs reviewed by me, Image(s) reviewed by me Assessment/Plan Assessment/Plan Impression: -acute pancreatitis, etiology questionable -anxiety disorder -PTSD -primary hypertension -degenerative joint disease of the spine Plan: Events: MRCP reviewed. Questionable pancreatic mass. CA 19 nine pending. Discussed findings with patient. -start full liquid diet -GI consultation -social service consultation for transfer to higher level of care for EUS and biopsy -continue pain management -repeat labs in a.m. Total time spent with patient discussing and formulating plan of care: 35 minutes. This medical document was created using an electronic medical record system with [employer] dictation system. Although this document has been carefully reviewed, there may still be some phonetic and typographical errors. These areas are purely typographical due to imperfections of the software programs, and do not reflect any compromise in the patient's medical care. Plan discussed with: Patient, Other (RN) Date of Service: Sep 08, 2024 Billing Provider: KRISHAN BOND NP Common Visit Codes: [id number] INP/OBS CARE(HIGH) KRISHAN BOND NP Sep 08, 2024 15:04
--- NOTE | 2024-09-08 16:59 | DVHPNRES ---
Progress Note Date Seen: Sep 08, 2024 Resident Creating Document: MINE OLSON RESIDENT Medical Necessity Reason Pt with a Central, PICC or Fol: No Subjective Review of Systems Patient seen and examined at bedside. No complaints of nausea and vomiting, continued to feel epigastric pain. Patient did not have bowel movements in last three four days. Patient had similar episodes of pancreatitis many years ago however not hospitalized. Patient denied fever, chills, sensory deficits, chest pain, shortness of breath, any other symptoms at this point. Objective vital signs Vital Sign Date Time Temp Pulse Resp B/P (MAP) Pulse Ox O2 Delivery O2 Flow Rate FiO2 09/08/24 15:16 63 16 132/79 09/08/24 05:53 97.2 97 97.2 09/07/24 09:55 Room Air* 0 21 Total Intake and Output 09/07/24 09/07/24 09/08/24 15:00 23:00 07:00 Intake Total 300 ml Output Total 500 ml Balance -200 ml medications Current Medications Medications Dose Ordered Sig/Lazaro Route Start Time Stop Time Status Last Admin Dose Admin Ondansetron HCl 4 mg Q4HP PRN IV 09/07/24 08:45 09/07/24 09:40 4 MG Morphine Sulfate 2 mg Q4HPRN PRN IV 09/07/24 08:45 Hold 09/07/24 09:42 2 MG Hydralazine HCl 10 mg Q6HP PRN IV 09/07/24 08:45 Pantoprazole Sodium 40 mg DAILY IV 09/07/24 10:00 09/08/24 09:31 40 MG Amlodipine Besylate 5 mg DAILY PO 09/07/24 10:00 09/08/24 09:32 5 MG Sodium Chloride 1,000 ml @ 100 mls/hr Q10H IV 09/07/24 08:45 09/08/24 05:14 100 MLS/HR Gabapentin 100 mg TID PO 09/07/24 14:00 09/08/24 15:16 100 MG Hydromorphone HCl 0.5 mg Q4HPRN PRN IV 09/07/24 13:00 09/08/24 15:16 0.5 MG Examination General Appearance: Cooperative. Well developed. Well nourished. NAD Head Exam: Normal inspection Neck Exam: Normal inspection. Non-tender. Normal alignment Pulmonary/Respiratory: Chest non-tender. Clear bilateral breath sounds Cardiovascular/Chest: Regular rate and rhythm. No murmurs. No JVD. Peripheral Pulses: 2+ Radial (R). 2+ Radial (L). 2+ Pedal (R). 2+ Pedal (L) Abdominal Exam: Normal bowel sounds. Soft. Nontender. No hepatospenomegaly. No masses Ankle Exam: Negative ankle edema Lower extremities: Negative lower extremity edema Neuro/Mental Status: A&O x4. Coherent Thoughts/Psych: Normal thought pattern. Appropriate mood and affect. Good judgement and insight Appearance: In no acute distress Skin Exam: Normal inspection. Normal color. Warm. Dry laboratory and microbiology Laboratory Tests 09/08/24 06:02 Test 09/08/24 06:02 Range/Units Serum Glucose 80 74-106 mg/dL Problem List/Assessment/Plan Problem List/Assessment/Plan Acute pancreatitis Abdominal pain likely due to above Unless pancreatic with small cysts: Rule out malignancy. Hemangiomata of liver Plan/recommendation Dr. Silvestre -reviewed MRI of abdomen. Enlarged head of pancreas with small cystic area posteriorly. Agreeing with hospitalist decision to transfer to higher level of care for EUS to rule out malignancy. -repeat lipase level in a.m.. Continue with IV hydration. -ordered CA 19 nine. Follow with results. -clear liquid diets. -we will continue following up with patient. Plan discussed with: Patient, Other (Rn) Dietary Evaluation Review Comments: counseled on high fiber, high fluid, low fat diet and regular exercise. Expected Outcomes/Goals: regular BM daily, [facility] MINE OLSON RESIDENT Sep 08, 2024 16:59
[2024-09-08 22:43] VITALS: BP 132/73; PULSE 50; RESP 17; TEMP 98.1; O2SAT 97
[2024-09-09 01:00] VITALS: BP 124/76; PULSE 48; RESP 17; TEMP 98.3; O2SAT 96
[2024-09-09 05:00] VITALS: BP 126/76; PULSE 60; RESP 17; TEMP 98.3; O2SAT 97
[2024-09-09 08:00] VITALS: PULSE 55; RESP 16; O2SAT 98
[2024-09-09 09:00] VITALS: BP 130/81; PULSE 55; RESP 16; TEMP 97.6; O2SAT 98
[2024-09-09] MEDS ORDERED: HYDR-4795 PO (10:55)
[2024-09-09] MEDS ORDERED: HYDROcodone-ACET 7.5/325MG TAB PO PRN (11:00)
--- NOTE | 2024-09-09 11:15 | DVHDS2 ---
Discharge Summary Date of Admission Sep 07, 2024 at 08:44 Date of Discharge: Sep 09, 2024 Admitting Diagnosis Acute pancreatitis Labs/Diagnostic Data: Laboratory Results Test 09/09/24 06:24 09/08/24 06:02 09/07/24 01:06 09/07/24 00:51 Lipase 214 U/L (12-53) White Blood Count 4.8 10^3/uL (4.4-10.8) Red Blood Count 4.59 10^6/uL (4.5-5.90) Hemoglobin 13.5 g/dL (13.5-17.5) Hematocrit 39.8 % (41.0-53.0) Mean Corpuscular Volume 86.6 fL (80.0-100.0) Mean Corpuscular Hemoglobin 29.4 pg (28.0-32.0) Mean Corpuscular Hemoglobin Concent 34.0 g/dL (32.0-36.0) Red Cell Distribution Width 14.2 % (11.8-14.3) Platelet Count 218 10^3/uL (140-450) Mean Platelet Volume 8.5 fL (6.9-10.8) Neutrophils (%) (Auto) 56.9 % (37.0-80.0) Lymphocytes (%) (Auto) 23.4 % (10.0-50.0) Monocytes (%) (Auto) 18.2 % (0.0-12.0) Eosinophils (%) (Auto) 1.3 % (0.0-7.0) Basophils (%) (Auto) 0.2 % (0.0-2.0) Neutrophils # (Auto) 2.8 10 ^3/uL (1.6-8.6) Lymphocytes # (Auto) 1.1 10 ^3/uL (0.4-5.4) Monocytes # (Auto) 0.9 10 ^3/uL (0-1.3) Eosinophils # (Auto) 0.1 10 ^3/uL (0-0.8) Basophils # (Auto) 0 10 ^3/uL (0-0.2) Nucleated Red Blood Cells 0.1 % Sodium Level 137 mmol/L (136-145) Potassium Level 3.5 mmol/L (3.5-5.1) Chloride Level 101 mmol/L (98-107) Carbon Dioxide Level 27 mmol/L (20-31) Anion Gap 9 (5-15) Blood Urea Nitrogen 7 mg/dL (9-23) Creatinine 0.99 mg/dL (0.700-1.30) Glomerular Filtration Rate Calc 90 mL/min (>90) BUN/Creatinine Ratio 7.1 (10.0-20.0) Serum Glucose 80 mg/dL (74-106) Calcium Level 10.2 mg/dL (8.7-10.4) Total Bilirubin 1.5 mg/dL (0.2-1.0) Aspartate Amino Transferase (AST) 14 U/L (13-40) Alanine Aminotransferase (ALT) 13 U/L (7-40) Alkaline Phosphatase 45 U/L (46-116) Total Protein 7.3 g/dL (5.7-8.2) Albumin 4.6 g/dL (3.2-4.8) Amylase Level 448 U/L (30-118) CA 19-9 Antigen <2 U/mL (0-35) Hemoglobin A1c 5.8 % A1C (<5.7) Triglycerides Level 83 mg/dL (< 150) Cholesterol Level 237 mg/dL (< 200) LDL Cholesterol 158 mg/dL (< 100) HDL Cholesterol 66 mg/dL (40-59) Thyroid Stimulating Hormone (TSH) 1.51 uIU/mL (0.55-4.78) Plasma/Serum Blood Alcohol < 3.0 mg/dL (<10) Urine Color Light-yellow (Yellow) Urine Clarity Clear (Clear) Urine pH 8.0 (5.0-9.0) Urine Specific [place] 1.018 (1.001-1.035) Urine Protein Negative (Negative) Urine Ketones Negative (Negative) Urine Blood Negative /uL (Negative) Urine Nitrite Negative (Negative) Urine Bilirubin Negative (Negative) Urine Urobilinogen Normal mg/dL (Negative) Urine Leukocyte Esterase Negative /uL (Negative) Urine RBC 1 /hpf (0 - 3) Urine Microscopic WBC < 1 /HPF (0-3) Urine Squamous Epithelial Cells Few /hpf (<5) Urine Bacteria None seen /hpf (None Seen) Urine Glucose Normal mg/dL (Normal) Urine Opiates Screen Neg (NEGATIVE) Urine Fentanyl Screen Neg (NEGATIVE) Urine Barbiturates Screen Neg (NEGATIVE) Urine Phencyclidine Screen Neg (NEGATIVE) Urine Amphetamines Screen Neg (NEGATIVE) Urine Benzodiazepines Screen Neg (NEGATIVE) Urine Cocaine Screen Neg (NEGATIVE) Urine Cannabinoids Screen Neg (NEGATIVE) Other Laboratory Tests 09/08/24 06:02 Brief Hx & Hospital Course: History of Present Illness This 53-year-old male with past medical history of hypertension, GERD, anxiety, PTSD, and alcohol abuse presents in the ED with a chief complaint of abdominal pain. The patient reports epigastric abdominal pain associated with cramping, nauseated, and constipation started four days ago. The patient reports have been drinking liquor 3 times a week for the past 30 years. Denies tobacco or illicit drug use. Course of hospitalization: Patient was found to have elevated lipase, 1884. Patient was made NPO, transitioned to full liquid diet as well as regular diet which he tolerated several days after admission. Lipase is downtrending. GI consultation has been obtained. CT scan showed questionable pancreatic mass. MRC P was performed with following impression: . Enlarged head of the pancreas with small cystic area posteriorly. Recommend percutaneous CT-guided biopsy or endoscopic biopsy to rule out neoplasm. 2. No biliary dilatation. No adenopathy. 3. Scattered hemangiomata in the liver. Social service consultation was obtained for transfer to [place] for possible EUS with biopsy. According to the social work coordinator, the [place] only does this procedure as an outpatient. Patient's CA 19-9 has been found to be of normal limits. Patient will be discharged home as instructed to follow up with his PCP to obtain referral to GI for further evaluation of pancreatic mass/cyst. Patient verbalized understanding. He will be continued on all home medications in addition to being prescribed [place] 7.5/325 q.8 hours as needed for [id number] pain. Patient was also instructed to curb his alcohol intake as this may be one of the etiologies for acute pancreatitis. Physical exam General: Alert and Oriented x3. No acute distress. Well-nourished. Eyes: EOMI. Anicteric. HENT: Moist mucous membranes. Lungs: Clear to auscultation bilaterally. No accessory muscle use. Cardiovascular: Regular rate and rhythm. No murmur. No JVD. Abdomen: Soft, non-tender and non-distended. No palpable masses. Extremities: No edema. Non-tender. Skin: No rashes or lesions. Warm. Neurologic: No focal neurological deficits. CN II-XII grossly intact, but not individually tested. Psychiatric: Cooperative. Appropriate mood and affect. Total time spent with patient discussing and formulating plan of care: 35 minutes. This medical document was created using an electronic medical record system with [employer] system. Although this document has been carefully reviewed, there may still be some phonetic and typographical errors. These areas are purely typographical due to imperfections of the software programs, and do not reflect any compromise in the patient's medical care. Consults/Reason for consult Gastroenterology: Acute pancreatitis Condition at Discharge: Guarded Final Diagnosis/Problems List Acute pancreatitis Secondary diagnosis: -anxiety disorder -PTSD -primary hypertension -degenerative joint disease of the spine -pancreatic mass versus cyst Discharge Disposition: Home Discharge Instruct/Medications Diet: Cardiac 2g Na,low cholest Activity: No Restrictions, As Tolerated Follow Up/Referral: [facility] for possible E[facility] with biopsy Medications: [place] 7.5/325 q.8 hours as needed for [id number] pain -continue all home medication 36 Discharge Statement: "Patient was advised to return to the ER or call 911 if any headaches, dizziness, shortness of breath, chest pain, abdominal pain, bleeding, fevers, or worsening of medical condition. Patient was counseled about treatment plan, medications, possible side effects, patientverbalized understanding. All questions were answered to the best of my ability. This discharge took greater then 30 minutes in planning, reviewing documentation, counseling the patient, and discussing with other team members." ASSESSMENT ASSESSMENT Assessment Acute pancreatitis Date of Service: Sep 09, 2024 Billing Provider: KRISHAN BOND NP Common Visit Codes: 10541-PAG/OBS DISCH DAY >30min KRISHAN BOND NP Sep 09, 2024 11:15
[2024-09-09 11:20] VITALS: BP 130/81; PULSE 55; RESP 16; TEMP 97.6; O2SAT 98
--- NOTE | 2024-09-09 16:45 | DVHPNRES ---
Progress Note Date Seen: Sep 09, 2024 Resident Creating Document: MINE OLSON RESIDENT Medical Necessity Reason Pt with a Central, PICC or Fol: No Subjective Review of Systems Patient seen and examined at bedside. No new complaints. Patient feels better. No nausea, vomiting, abdominal pain. Patient was able to tolerate food. Patient has been discharged as per hospitalist team. [facility] care. Objective vital signs Vital Sign Date Time Temp Pulse Resp B/P (MAP) Pulse Ox O2 Delivery O2 Flow Rate FiO2 09/09/24 11:20 97.6 55 16 98 09/09/24 09:09 130/81 09/09/24 08:00 Room Air* 0 21 Total Intake and Output 09/08/24 09/08/24 09/09/24 15:00 23:00 07:00 Intake Total 1800 ml Balance 1800 ml Examination General Appearance: Cooperative. Well developed. Well nourished. NAD Head Exam: Normal inspection Neck Exam: Normal inspection. Non-tender. Normal alignment Pulmonary/Respiratory: Chest non-tender. Clear bilateral breath sounds Cardiovascular/Chest: Regular rate and rhythm. No murmurs. No JVD. Peripheral Pulses: 2+ Radial (R). 2+ Radial (L). 2+ Pedal (R). 2+ Pedal (L) Abdominal Exam: Normal bowel sounds. Soft. Nontender. No hepatospenomegaly. No masses Ankle Exam: Negative ankle edema Lower extremities: Negative lower extremity edema Neuro/Mental Status: A&O x4. Coherent Thoughts/Psych: Normal thought pattern. Appropriate mood and affect. Good judgement and insight Appearance: In no acute distress Skin Exam: Normal inspection. Normal color. Warm. Dry laboratory and microbiology Laboratory Tests 09/08/24 06:02 Test 09/08/24 06:02 Range/Units Serum Glucose 80 74-106 mg/dL Problem List/Assessment/Plan Problem List/Assessment/Plan Acute pancreatitis Abdominal pain likely due to above Unless pancreatic with small cysts: Rule out malignancy. Hemangiomata of liver Plan/recommendation Dr. Silvestre -reviewed MRI of abdomen. Enlarged head of pancreas with small cystic area posteriorly. Patient has been discharged as per hospitalist team, as per patient [facility] and management of enlarged head of pancreas/possible pancreatic malignancy. -advance diet as toleration. -repeat lipase level in a.m.. Continue with IV hydration. -CA 19 nine less than two. -clear liquid diets. Plan discussed with: Patient, Other (RN) Dietary Evaluation Review Comments: counseled on high fiber, high fluid, low fat diet and regular exercise. Expected Outcomes/Goals: regular BM daily, [facility] MINE OLSON RESIDENT Sep 09, 2024 16:45
== END 2024-09-09 13:39 | disposition home or self-care (01) | DRG 439 ==
LOC: ER 00:19 → OVERFLOW 08:44 → CENTRAL 09-08 22:33
PROVIDERS: ADMIT Registered Nurse; ATTEND Nurse Practitioner Acute Care
DX: K85.90 Acute pancreatitis without necrosis or infection, unspecified (principal); K86.2 Cyst of pancreas; D18.03 Hemangioma of intra-abdominal structures; F43.10 Post-traumatic stress disorder, unspecified; F41.9 Anxiety disorder, unspecified; I10 Essential (primary) hypertension; K59.00 Constipation, unspecified; K21.9 Gastro-esophageal reflux disease without esophagitis; F10.10 Alcohol abuse, uncomplicated; R73.9 Hyperglycemia, unspecified; K86.89 Other specified diseases of pancreas; Z68.23 Body mass index [BMI] 23.0-23.9, adult; Z79.899 Other long term (current) drug therapy
CPT/HCPCS: 36415; 74177; 74183; 76705; 80053; 80061; 80307; 80320; 81001; 82150; 83036; 83690; 84443; 85025; 86301; G0378; J1885; J2405; J2470